=== PATIENT | female | born 2000 | race Caucasian/White ===

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

== ENCOUNTER → 2022-08-29 | Outpatient (CLI) | payer BC ==
--- NOTE | 2022-08-29 11:21 | Diagnostic Imaging Report ---
CLINICAL INDICATION: Patient has history of pituitary tumor. EXAM: MRI of the brain and pituitary using pituitary protocol performed without and with 20 mL of Clariscan IV gadolinium. Sequences include sagittal T1, axial flair, axial T1, axial DWI, axial ADC map, axial gradient echo, coronal T1 thin, coronal T1 fat sat thin, sagittal T1 thin, coronal T2 fat-sat thin, axial T1 post contrast whole brain, coronal dynamic post IV gadolinium through the sella, coronal T1 post IV gadolinium thin fat sat, and sagittal T1 post gadolinium thin. COMPARISON: None. FINDINGS: SELLA/SUPRASELLA REGIONS: Stable size and configuration of the high T1/high T2 signal circumscribed lesion involving the left of midline upper aspect of the sella which causes mass effect involving the upper aspect of left pituitary gland. This lesion measures 9 mm x 8 mm x 5 mm (AP x Trans x CC). It is difficult to determine if there is any enhancement associated with this lesion. Infundibulum is midline. The remainder of the sella and suprasellar regions have normal anatomic appearance. There is homogenous enhancement of the pituitary gland. The visualized portions of the optic nerves and pathways are unremarkable. ORBITS/ GLOBES: Visualized portions are unremarkable. CAVERNOUS SINUS/ MECKEL'S CAVE: Unremarkable. BRAIN/ INTRACRANIAL STRUCTURES: Again seen developmental venous anomaly in the right cerebellar hemisphere noted. Otherwise, the brain parenchyma is unremarkable. SINUSES: There is minimal mucosal thickening involving left maxillary sinus. CRANIUM/ EXTRACRANIAL SOFT TISSUE: Unremarkable. IMPRESSION: 1: Stable 9 mm circumscribed high T1/high T2 signal lesion involving the left of midline upper aspect of the pituitary gland. It is difficult to determine the amount of enhancement if any. 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 There is no encroachment upon the optic nerves. The remainder of the pituitary gland is unremarkable. 2: There is minimal left maxillary sinus disease. Otherwise, the remainder of this exam is unremarkable. Dictated by: Dictated on workstation # [id number]
== END ==
LOC: RAD 09:30
PROVIDERS: ATTEND Family Medicine
DX: E23.6 Other disorders of pituitary gland (principal); J34.89 Other specified disorders of nose and nasal sinuses
CPT/HCPCS: 70553

== ENCOUNTER → 2023-02-28 | Outpatient (CLI) | payer BC ==
[2023-02-28 10:09] LABS: ALBUMIN 3.8 GM/DL (3.2-4.5); BILIRUBIN,TOTAL 0.4 MG/DL (0.1-1.0); CALCIUM 8.7 MG/DL (8.5-10.1); CREATININE SERUM 0.76 MG/DL (0.60-1.30); POTASSIUM 3.9 MMOL/L (3.6-5.0); TOTAL PROTEIN 6.7 GM/DL (6.4-8.2)
[2023-02-28 10:30] LABS: FREE T4 (FREE THYROXINE) 0.91 NG/DL (0.70-1.48)
== END ==
LOC: LAB 09:24
PROVIDERS: ATTEND Family Medicine
DX: D35.2 Benign neoplasm of pituitary gland (principal)
CPT/HCPCS: 36415; 80053; 82024; 82533; 84146; 84439; 84443

== ENCOUNTER 2023-04-11 08:16 | Outpatient (RCR) | payer BC ==
[2023-04-11 09:12] LABS: TRIGLYCERIDES 87 MG/DL (<150); VLDL CHOLESTEROL 17 MG/DL (5-40)
[2023-04-11 09:17] LABS: CHOLESTEROL 155 MG/DL (< 200)
[2023-04-11 09:18] LABS: HDL CHOLESTEROL 40 MG/DL (40-60)
[2023-04-13 09:48] LABS: CREATININE 24 HOUR,URINE 792 MG/24H (800-1700); TOTAL VOLUME,URINE 800 ML
== END 2023-04-20 | disposition home or self-care (01) ==
LOC: LAB 08:16
PROVIDERS: ATTEND Internal Medicine Endocrinology, Diabetes & Metabolism
DX: E23.6 Other disorders of pituitary gland (principal); L68.0 Hirsutism; N92.6 Irregular menstruation, unspecified; R63.5 Abnormal weight gain
CPT/HCPCS: 36415; 80061; 82530; 82533; 82570; 82627; 82670; 83001; 83002; 83036; 83498; 84305; 84403

== ENCOUNTER 2023-05-09 08:37 | Outpatient (RCR) | payer BC ==
[2023-05-09 09:28] LABS: CHOLESTEROL 165 MG/DL (< 200); HDL CHOLESTEROL 43 MG/DL (40-60); TRIGLYCERIDES 91 MG/DL (<150); VLDL CHOLESTEROL 18 MG/DL (5-40)
== END 2023-05-20 | disposition home or self-care (01) ==
LOC: LAB 08:37
PROVIDERS: ATTEND Internal Medicine Endocrinology, Diabetes & Metabolism
DX: E23.6 Other disorders of pituitary gland (principal); L68.0 Hirsutism; N92.6 Irregular menstruation, unspecified; R63.5 Abnormal weight gain
CPT/HCPCS: 36415; 80061; 82533; 82627; 82670; 83001; 83002; 83036; 83498; 84270; 84305; 84402

== ENCOUNTER → 2023-05-09 | Outpatient (CLI) | payer BC ==
[~2023-05-09] MED LIST changes: +GADOTERATE 0.5 MMOL/ML (CLARISCAN) 5 ML VIAL IV ONE
--- NOTE | 2023-05-09 20:17 | Diagnostic Imaging Report ---
MRI BRAIN PITUITARY W/WO CON INDICATION: Pituitary mass. COMPARISON: MRI of the pituitary from 08/29/2022 and 09/17/2021. TECHNIQUE: Multiplanar, multisequence MR imaging of the brain and pituitary was performed without and with IV contrast. FINDINGS: As seen on multiple prior examinations, there is a stable 0.8 x 0.5 x 0.9 cm intrinsically T1 hyperintense mass in the left superior margin of the pituitary gland. It again has extension above the normal margins of the pituitary and abuts the infundibulum. There is no mass effect on the adjacent optic chiasm. Additionally, there is no extension into the cavernous sinus. No sites of differential enhancement within the pituitary that would suggest microadenoma. No restricted diffusion to indicate an acute infarct. No gradient blooming hypointensities to indicate hemorrhage. Small developmental venous anomaly in the right cerebellar hemisphere is unchanged. No areas of pathologic enhancement are seen above the tentorium. Pelaez-white matter differentiation is well preserved. No hydrocephalus, mass, or extra-axial fluid collection. The orbits and paranasal sinuses are normal. Major flow voids are preserved. IMPRESSION: 1. 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 There remains no mass effect on the optic chiasm. Dictated by: Dictated on workstation # [id number]
== END ==
LOC: RAD 13:39
PROVIDERS: ATTEND Internal Medicine Endocrinology, Diabetes & Metabolism
DX: E23.6 Other disorders of pituitary gland (principal)
CPT/HCPCS: 70553